=== PATIENT | female | born 1960 | race Caucasian/White ===

== ENCOUNTER → 2017-11-07 | Outpatient (CLI) | payer OTHER ==
[2017-11-07 18:38] LABS: CALCIUM LEVEL 9.4 MG/DL (8.5-10.1); FREE T4 0.72 NG/DL (0.76-1.46); PHOSPHORUS LEVEL 2.7 MG/DL (2.5-4.9)
[2017-11-07 18:42] LABS: THYROID PEROXIDASE ANTIBODY < 28.0 U/ML (<60.0)
[2017-11-07 18:43] LABS: PTH INTACT 70.8 PG/ML (14.0-72.0)
== END ==
LOC: M WUC 15:38
DX: M81.0 Age-related osteoporosis without current pathological fracture (principal); E55.9 Vitamin D deficiency, unspecified; R94.6 Abnormal results of thyroid function studies
CPT/HCPCS: 82310

== ENCOUNTER → 2018-05-08 | Outpatient (CLI) | payer OTHER ==
[2018-05-08 19:40] LABS: TOTAL 25(OH) VITAMIN D 47.7 NG/ML (30.0-100.0)
[2018-05-08 19:41] LABS: PTH INTACT 38.5 PG/ML (18.5-88.0)
[2018-05-08 19:41] LABS: CALCIUM LEVEL 10.1 MG/DL (8.5-10.1); FREE T4 0.71 NG/DL (0.76-1.46)
== END ==
LOC: M WUC 15:44
DX: M81.0 Age-related osteoporosis without current pathological fracture (principal); E55.9 Vitamin D deficiency, unspecified; R94.6 Abnormal results of thyroid function studies
CPT/HCPCS: 82310

== ENCOUNTER → 2018-07-05 | Outpatient (CLI) | payer OTHER ==
[2018-07-05 19:35] LABS: FREE T4 0.93 NG/DL (0.76-1.46)
[2018-07-05 19:35] LABS: THYROID STIMULATING HORMONE 0.676 uIU/ML (0.358-3.740)
== END ==
LOC: M WUC 16:57
DX: R94.6 Abnormal results of thyroid function studies (principal)
CPT/HCPCS: 84443

== ENCOUNTER → 2018-11-04 | Outpatient (CLI) | payer OTHER ==
[~2018-11-04] MED LIST: HYDR-3713 PO
[2018-11-04 20:42] LABS: FREE T4 0.94 NG/DL (0.76-1.46); THYROID STIMULATING HORMONE 0.257 uIU/ML (0.358-3.740)
== END ==
LOC: M WUC 17:39
PROVIDERS: ATTEND Nurse Practitioner Family
DX: R94.6 Abnormal results of thyroid function studies (principal)

== ENCOUNTER → 2019-05-15 | Outpatient (CLI) | payer OTHER ==
[2019-05-15 20:32] LABS: CALCIUM LEVEL 9.7 MG/DL (8.5-10.1); FREE T4 0.91 NG/DL (0.76-1.46); THYROID STIMULATING HORMONE 1.15 uIU/ML (0.358-3.740)
[2019-05-15 20:34] LABS: TOTAL 25(OH) VITAMIN D 73.4 NG/ML (30.0-100.0)
== END ==
LOC: M WUC 16:43
PROVIDERS: ATTEND Nurse Practitioner Family
DX: R94.6 Abnormal results of thyroid function studies (principal); M81.0 Age-related osteoporosis without current pathological fracture; E55.9 Vitamin D deficiency, unspecified

== ENCOUNTER → 2019-07-07 | Outpatient (CLI) | payer OTHER ==
[2019-07-07 20:32] LABS: BLOOD UREA NITROGEN 13 MG/DL (7-18); CALCIUM LEVEL 9.8 MG/DL (8.5-10.1); CARBON DIOXIDE LEVEL 31 MEQ/L (21-32); CHLORIDE LEVEL 105 MEQ/L (98-107); CREATININE FOR GFR 0.71 MG/DL (0.55-1.30); GLOMERULAR FILTRATION RATE > 60.0 (>51); GLUCOSE, FASTING 84 MG/DL (70-100); POTASSIUM SERUM 3.9 MEQ/L (3.5-5.1); SODIUM LEVEL 140 MEQ/L (136-145)
[2019-07-07 20:33] LABS: BASO % 0.7 % (0.0-1.0); EOS # 0.1 10^3/uL (0.0-0.5); EOS % 2.1 % (0.0-3.0); HEMATOCRIT 37.8 % (36.0-47.0); HEMOGLOBIN 12.5 g/dl (12.0-15.5); LYMPH # 1.7 10^3/uL (1.5-5.0); MEAN CORPUSCULAR HGB CONC 33.1 g/dl (32.0-36.5); MEAN CORPUSCULAR VOLUME 96.7 fl (80.0-96.0); MONO # 0.6 10^3/uL (0.0-0.8); MONO % 10.3 % (0.0-5.0); NEUTROPHILS # 3.2 10^3/uL (1.5-8.5); NEUTROPHILS % 56.7 % (36.0-66.0); PLATELET COUNT, AUTOMATED 145 10^3/uL (150-450); RED BLOOD COUNT 3.91 10^6/uL (4.00-5.40); WHITE BLOOD COUNT 5.6 10^3/uL (4.0-10.0)
[2019-07-07 20:39] LABS: APPEARANCE, URINE CLEAR (CLEAR); BACTERIA, URINE AUTO 1+ (NEGATIVE); BILIRUBIN, URINE AUTO NEGATIVE (NEGATIVE); BLOOD, URINE BLOOD NEGATIVE (NEGATIVE); COLOR, URINE COLORLESS (YELLOW); GLUCOSE, URINE (UA) AUTO NEGATIVE (NEGATIVE); KETONE, URINE AUTO NEGATIVE (NEGATIVE); LEUKOCYTE ESTERASE, URINE AUTO NEGATIVE (NEGATIVE); NITRITE, URINE AUTO NEGATIVE (NEGATIVE); PROTEIN, URINE AUTO NEGATIVE (NEGATIVE); RBC, URINE AUTO 1 /HPF (0-3); SPECIFIC GRAVITY URINE AUTO 1.002 (1.002-1.035); SQUAMOUS EPITHELIAL CELL UR AU 0 /HPF (0-6); UROBILINOGEN, URINE AUTO 0.2 mg/dL (0.0-2.0); WBC, URINE AUTO 1 /HPF (0-3)
[2019-07-07 20:51] LABS: CREATININE, URINE < 13.0 MG/DL; CREATININE,RANDOM URINE < 13.0 MG/DL; MALB URINE SIEMENS < 5.0 MG/L; TOTAL PROTEIN,RANDOM URINE < 5.0 MG/DL (0.0-12.0)
[2019-07-07 21:09] LABS: HEMOGLOBIN A1c 5.5 %
== END ==
LOC: M WUC 16:15
PROVIDERS: ATTEND Internal Medicine Nephrology
DX: Z00.5 Encounter for examination of potential donor of organ and tissue (principal)

== ENCOUNTER → 2019-11-10 | Outpatient (CLI) | payer OTHER ==
[2019-11-10 20:41] LABS: FREE T4 1.08 NG/DL (0.76-1.46); THYROID STIMULATING HORMONE 0.712 uIU/ML (0.358-3.740)
== END ==
LOC: M WUC 16:36
PROVIDERS: ATTEND Nurse Practitioner Family
DX: R94.6 Abnormal results of thyroid function studies (principal)

== ENCOUNTER → 2020-05-11 | Outpatient (REF) | payer OTHER ==
[2020-06-25 17:44] LABS: FREE T4 0.98 NG/DL (0.76-1.46); THYROID STIMULATING HORMONE 0.667 uIU/ML (0.358-3.740)
== END ==
LOC: M LABWUC 16:20
PROVIDERS: ATTEND Nurse Practitioner Family
DX: R94.6 Abnormal results of thyroid function studies (principal)

== ENCOUNTER → 2020-10-27 | Outpatient (CLI) | payer OTHER ==
[2020-10-27 16:14] LABS: BLOOD UREA NITROGEN 10 MG/DL (7-18); CALCIUM LEVEL 10.4 MG/DL (8.5-10.1); CARBON DIOXIDE LEVEL 33 MEQ/L (21-32); CHLORIDE LEVEL 104 MEQ/L (98-107); CREATININE FOR GFR 0.69 MG/DL (0.55-1.30); FREE T4 0.97 NG/DL (0.76-1.46); GLOMERULAR FILTRATION RATE > 60.0 (>51); GLUCOSE, FASTING 98 MG/DL (70-100); SODIUM LEVEL 142 MEQ/L (136-145); THYROID STIMULATING HORMONE 0.869 uIU/ML (0.358-3.740)
[2020-10-27 17:00] LABS: TOTAL 25(OH) VITAMIN D 81.7 NG/ML (30.0-100.0)
== END ==
LOC: M WUC 14:24
PROVIDERS: ATTEND Nurse Practitioner Family
DX: R94.6 Abnormal results of thyroid function studies (principal); E55.9 Vitamin D deficiency, unspecified; M81.0 Age-related osteoporosis without current pathological fracture

== ENCOUNTER → 2020-11-24 | Outpatient (CLI) | payer OTHER ==
[2020-11-24 15:42] LABS: CALCIUM LEVEL 10.1 MG/DL (8.5-10.1)
[2020-11-24 15:58] LABS: PTH INTACT 68.5 PG/ML (18.5-88.0)
== END ==
LOC: M WUC 12:23
PROVIDERS: ATTEND Nurse Practitioner Family
DX: M81.0 Age-related osteoporosis without current pathological fracture (principal)

== ENCOUNTER → 2021-05-26 | Outpatient (REF) | payer OTHER ==
[2021-05-27 06:19] LABS: CALCIUM, 24 HOUR URINE 208.8 MG/24HR (42-353); CALCIUM, URINE 14.4 MG/DL
== END ==
LOC: M LAB REF 13:17
PROVIDERS: ATTEND Internal Medicine Endocrinology, Diabetes & Metabolism
DX: E83.52 Hypercalcemia (principal)

== ENCOUNTER → 2021-08-15 | Outpatient (CLI) | payer OTHER ==
--- NOTE | 2021-08-15 14:00 | REP ---
INDICATION: ABN RESULTS OF THYROID FUNCTIONS. COMPARISON: None. TECHNIQUE/RADIOTRACER AND DOSE: After the intravenous administration of 27.3 mCi of technetium 99 M sestamibi parathyroid imaging was obtained. FINDINGS: There is no abnormal tracer retention seen on the 3 hour delayed imaging. IMPRESSION: No evidence of a parathyroid adenoma. <Electronically signed by Leobardo Hernandez > 08/15/21 [id number]
== END ==
LOC: M RAD 08:24
PROVIDERS: ATTEND Internal Medicine Endocrinology, Diabetes & Metabolism
DX: R94.6 Abnormal results of thyroid function studies (principal)

== ENCOUNTER → 2021-08-29 | Outpatient (CLI) | payer OTHER ==
[2021-08-29 21:43] LABS: THYROID STIMULATING HORMONE 0.647 uIU/ML (0.358-3.740)
[2021-08-29 21:45] LABS: PTH INTACT 79.5 PG/ML (18.5-88.0)
== END ==
LOC: M WUC 15:36
PROVIDERS: ATTEND Internal Medicine Endocrinology, Diabetes & Metabolism
DX: E83.52 Hypercalcemia (principal); R94.6 Abnormal results of thyroid function studies

== ENCOUNTER → 2022-04-12 | Outpatient (CLI) | payer OTHER ==
[2022-04-12 17:14] LABS: CALCIUM LEVEL 9.9 MG/DL (8.8-10.2)
[2022-04-12 17:43] LABS: PTH INTACT 67.9 PG/ML (18.5-88.0)
== END ==
LOC: M WUC 13:23
PROVIDERS: ATTEND Student in an Organized Health Care Education/Training Program
DX: E21.3 Hyperparathyroidism, unspecified (principal)

== ENCOUNTER → 2022-08-09 | Outpatient (CLI) | payer OTHER ==
[2022-08-09 14:43] LABS: CALCIUM LEVEL 9.7 MG/DL (8.8-10.2); FREE T4 0.99 NG/DL (0.76-1.46); PHOSPHORUS LEVEL 3.4 MG/DL (2.5-4.9); THYROID STIMULATING HORMONE 0.464 uIU/ML (0.358-3.740)
[2022-08-09 15:35] LABS: PTH INTACT 76.1 PG/ML (18.5-88.0)
[2022-08-09 17:41] LABS: TOTAL 25(OH) VITAMIN D 53.6 NG/ML (30.0-100.0)
== END ==
LOC: M WUC 10:32
PROVIDERS: ATTEND Internal Medicine Endocrinology, Diabetes & Metabolism
DX: R94.6 Abnormal results of thyroid function studies (principal); E55.9 Vitamin D deficiency, unspecified

== ENCOUNTER → 2022-10-27 | Outpatient (REF) | payer OTHER ==
[2022-10-27 15:23] LABS: CALCIUM, URINE 18.5 MG/DL
[2022-10-27 20:14] LABS: CALCIUM, 24 HOUR URINE 203.5 MG/24HR (42-353)
== END ==
LOC: M LAB REF 13:28
PROVIDERS: ATTEND Internal Medicine Endocrinology, Diabetes & Metabolism
DX: E83.52 Hypercalcemia (principal)

== ENCOUNTER → 2022-11-09 | Outpatient (CLI) | payer OTHER ==
[2022-11-09 16:25] LABS: BLOOD UREA NITROGEN 17 MG/DL (9-23); CALCIUM LEVEL 9.9 MG/DL (8.3-10.6); CARBON DIOXIDE LEVEL 31 MMOL/L (20-31); CHLORIDE LEVEL 104 MMOL/L (98-107); CREATININE FOR GFR 0.64 MG/DL (0.55-1.30); GLOMERULAR FILTRATION RATE > 60.0 (>45); GLUCOSE, FASTING 91 MG/DL (74-106); POTASSIUM SERUM 4.3 MMOL/L (3.5-5.1); SODIUM LEVEL 140 MMOL/L (136-145)
== END ==
LOC: M WUC 13:10
PROVIDERS: ATTEND Student in an Organized Health Care Education/Training Program
DX: E21.3 Hyperparathyroidism, unspecified (principal)

== ENCOUNTER → 2023-04-11 | Outpatient (REF) | payer OTHER | LOC: M LAB REF 16:23 | PROVIDERS: ATTEND Internal Medicine | DX: E83.52 Hypercalcemia (principal) ==

== ENCOUNTER → 2023-08-13 | Outpatient (CLI) | payer OTHER ==
[2023-08-13 17:27] LABS: IONIZED CALCIUM 4.3 MG/DL (4.5-5.3)
[2023-08-13 18:04] LABS: CALCIUM LEVEL 8.1 MG/DL (8.3-10.6); MAGNESIUM LEVEL 2.1 MG/DL (1.8-2.4); PHOSPHORUS LEVEL 4.4 MG/DL (2.4-5.1); PTH INTACT 14.1 PG/ML (18.5-88.0)
== END ==
LOC: M LAB 16:38
PROVIDERS: ATTEND Internal Medicine Endocrinology, Diabetes & Metabolism
DX: E83.51 Hypocalcemia (principal)

== ENCOUNTER → 2023-08-13 | Outpatient (CLI) | payer OTHER | LOC: M WUC 15:28 | PROVIDERS: ATTEND Internal Medicine Endocrinology, Diabetes & Metabolism | DX: Z53.9 Procedure and treatment not carried out, unspecified reason (principal) ==

== ENCOUNTER → 2023-10-08 | Outpatient (CLI) | payer OTHER ==
[2023-10-08 16:30] LABS: CALCIUM LEVEL 8.3 MG/DL (8.3-10.6); PHOSPHORUS LEVEL 4.5 MG/DL (2.4-5.1)
== END ==
LOC: M WUC 12:11
PROVIDERS: ATTEND Internal Medicine Endocrinology, Diabetes & Metabolism
DX: E83.51 Hypocalcemia (principal)

== ENCOUNTER → 2023-11-09 | Outpatient (REF) | LOC: M LAB 11:24 | PROVIDERS: ATTEND Nurse Practitioner Adult Health | DX: Z00.00 Encounter for general adult medical examination without abnormal findings (principal) ==

== ENCOUNTER → 2023-12-19 | Outpatient (CLI) | payer OTHER ==
[2023-12-19 12:54] LABS: CALCIUM LEVEL 8.2 MG/DL (8.3-10.6); PHOSPHORUS LEVEL 4.1 MG/DL (2.4-5.1)
== END ==
LOC: M WUC 09:18
PROVIDERS: ATTEND Internal Medicine Endocrinology, Diabetes & Metabolism
DX: E83.51 Hypocalcemia (principal)

== ENCOUNTER → 2024-04-15 | Outpatient (REF) | payer OTHER ==
[2024-04-15 14:45] LABS: PTH INTACT 23.4 PG/ML (18.5-88.0)
[2024-04-16 12:46] LABS: PERCENT SATURATION 12.7 % (13.2-45.0)
[2024-04-16 12:49] LABS: FERRITIN 18.7 NG/ML (7.3-270.7)
== END ==
LOC: M LAB REF 13:38
PROVIDERS: ATTEND Internal Medicine
DX: E83.52 Hypercalcemia (principal)

== ENCOUNTER → 2024-07-09 | Outpatient (CLI) | payer OTHER ==
[2024-07-09 16:53] LABS: CALCIUM LEVEL 8.3 MG/DL (8.3-10.6); MAGNESIUM LEVEL 2.1 MG/DL (1.8-2.4); PHOSPHORUS LEVEL 4.5 MG/DL (2.4-5.1); THYROID STIMULATING HORMONE 1.022 uIU/ML (0.55-4.78)
== END ==
LOC: M WUC 13:47
PROVIDERS: ATTEND Internal Medicine Endocrinology, Diabetes & Metabolism
DX: E83.51 Hypocalcemia (principal); R94.6 Abnormal results of thyroid function studies; E55.9 Vitamin D deficiency, unspecified

== ENCOUNTER 2024-10-06 11:30 | Day surgery (SDC) | payer OTHER ==
[~2024-10-06] VITALS: Ht 167.6 cm; Wt 57.8 kg
[~2024-10-06 11:30] MED LIST changes: +ACET-907 PO; +ESTR10TA EC; +GNP250TA9 PO; +IBUP200T46 PO; +IRON65TA2 PO; +LEVO50TA5 PO; +OYST1TAB PO
[2024-10-06] MEDS ORDERED: LIDOCAINE 2% 100MG/5ML SDV (FOR ANES.) As Ordered ONE (12:25)
[2024-10-06] MEDS ORDERED: propofoL 200 MG/20 ML VIAL As Ordered ONE (12:25)
[2024-10-06 13:15] VITALS: TEMP 96.9
[2024-10-06 13:30] VITALS: BP 131/60; O2SAT 96
== END 2024-10-06 13:35 | disposition home or self-care (01) ==
LOC: M OPP 11:30
PROVIDERS: ATTEND Internal Medicine Gastroenterology
DX: Z12.11 Encounter for screening for malignant neoplasm of colon (principal); K64.0 First degree hemorrhoids; Z79.899 Other long term (current) drug therapy

== ENCOUNTER → 2025-01-05 | Outpatient (CLI) | payer OTHER ==
[2025-01-05 18:07] LABS: ALBUMIN 3.8 G/DL (3.2-5.2); ALKALINE PHOSPHATASE 45 U/L (35-104); ALT/SGPT 23 U/L (7.0-40); AST/SGOT 21 U/L (<34); BILIRUBIN,TOTAL 0.5 MG/DL (0.3-1.2); BLOOD UREA NITROGEN 15 MG/DL (9-23); CALCIUM LEVEL 8.5 MG/DL (8.3-10.6); CARBON DIOXIDE LEVEL 31 MMOL/L (20-31); CHLORIDE LEVEL 106 MMOL/L (98-107); CREATININE FOR GFR 0.67 MG/DL (0.55-1.30); GLOMERULAR FILTRATION RATE > 60.0 (>45); GLUCOSE, FASTING 87 MG/DL (74-106); POTASSIUM SERUM 3.9 MMOL/L (3.5-5.1); SODIUM LEVEL 144 MMOL/L (136-145); TOTAL PROTEIN 6.3 G/DL (5.7-8.2)
[2025-01-05 18:08] LABS: THYROID STIMULATING HORMONE 0.503 uIU/ML (0.55-4.78)
== END ==
LOC: M WUC 13:40
PROVIDERS: ATTEND Internal Medicine Endocrinology, Diabetes & Metabolism
DX: M81.0 Age-related osteoporosis without current pathological fracture (principal)

== ENCOUNTER → 2025-04-17 | Outpatient (REF) | payer OTHER ==
[2025-04-17 16:17] LABS: IRON (FE) 99.0 UG/DL (50-170); PERCENT SATURATION 31.2 % (13.2-45.0)
[2025-04-17 18:38] LABS: PTH INTACT 17.2 PG/ML (18.5-88.0)
== END ==
LOC: M LAB REF 14:53
PROVIDERS: ATTEND Internal Medicine
DX: E83.52 Hypercalcemia (principal); R53.83 Other fatigue

== ENCOUNTER → 2025-07-02 | Outpatient (REF) | payer OTHER ==
[2025-07-04 13:18] LABS: HPV APTIMA Not Detected (Not Detected)
== END ==
LOC: M SFHCWAGY 13:11
PROVIDERS: ATTEND Advanced Practice Midwife
DX: Z12.4 Encounter for screening for malignant neoplasm of cervix (principal)
CPT/HCPCS: 87624; G0123

== ENCOUNTER → 2025-07-16 | Outpatient (CLI) | payer OTHER ==
[2025-07-16 15:21] LABS: PLATELET COUNT, AUTOMATED 164 10^3/uL (150-450)
[2025-07-16 15:54] LABS: ALT/SGPT 23 U/L (7.0-40); AST/SGOT 30 U/L (<34); CALCIUM LEVEL 8.2 MG/DL (8.3-10.6); CARBON DIOXIDE LEVEL 31 MMOL/L (20-31); CHLORIDE LEVEL 103 MMOL/L (98-107); CREATININE FOR GFR 0.74 MG/DL (0.55-1.30); GLOMERULAR FILTRATION RATE > 90.0 (>45); MAGNESIUM LEVEL 1.8 MG/DL (1.8-2.4); POTASSIUM SERUM 3.8 MMOL/L (3.5-5.1); PTH INTACT 16.1 PG/ML (18.5-88.0); SODIUM LEVEL 142 MMOL/L (136-145)
[2025-07-16 15:56] LABS: FREE T4 1.19 NG/DL (0.89-1.76); TOTAL 25(OH) VITAMIN D 57.7 NG/ML (20.0-100.0)
== END ==
LOC: M WUC 11:44
PROVIDERS: ATTEND Nurse Practitioner Family
DX: M81.0 Age-related osteoporosis without current pathological fracture (principal); R94.6 Abnormal results of thyroid function studies